=== PATIENT | male | born 1960 | race Hispanic/Latino ===

== ENCOUNTER 2017-08-07 12:38 | Inpatient (IN) | payer OTHER ==
--- NOTE | 2017-08-07 15:13 | Consultation ---
History of Present Illness - Reason for Consult Consult date: 08/07/17 chronic renal failure, end stage renal disease, hyperkalemia, metabolic acidosis - History of Present Illness The patient is a 57 YO WM with medical history significant for Type 2 DM, HTN, HLD, CVA with right sided hemiplegia and CKD stage 5 was sent from my office to the hospital to initiate hemodialysis. Patient was admitted at [facility] about 3 weeks ago with acute CVA. Subsequently he was discharged to Rehab facility. Patient c/o decreased appetite and strange taste in the tongue for the past 2 days. He also reports sleep disturbances for the past 2 weeks. While in the Rehab facility he was found to have hyperkalemia and was treated with Kayexalate. No h/o N, V, D, dizziness, new weakness, muscle cramps, leg swelling or syncope. He has DM and HTN for several years but was not taking any meds and hasn't seen a physician in several years until this month. Past History Past Medical History: anemia, diabetes, hypertension, hyperlipidemia, renal failure, stroke Medications and Allergies Allergies Allergy/AdvReac Type Severity Reaction Status Date / Time No Known Allergies Allergy Unverified 08/07/17 12:43 Home Medications Medication Instructions Recorded Confirmed Last Taken Type No Known Home Medications [No 08/07/17 08/07/17 Unknown History Reported Home Medications] Review of Systems Constitutional: anorexia, no weight loss, no weight gain, no fever, no chills, no weakness Ears, nose, mouth and throat: no epistaxis Cardiovascular: high blood pressure, no chest pain, no orthopnea, no palpitations, no edema, no lightheadedness, no shortness of breath, no leg edema Respiratory: no cough, no shortness of breath, no dyspnea on exertion Gastrointestinal: no abdominal pain, no nausea, no vomiting, no diarrhea, no melena Genitourinary Male: no dysuria, no hematuria Rectal: no bleeding Musculoskeletal: muscle weakness, gait dysfunction, no redness of joints Integumentary: no rash, no wounds, no jaundice Neurological: paralysis, weakness, loss of vision (right eye blind), no head injury, no seizures, no vertigo, no headaches, no gait dysfunction, no double vision Psychiatric: no disorientation Endocrine: no weight change Hematologic/Lymphatic: no easy bleeding Exam - Vital Signs Vital signs: Vital Signs Temp Pulse Resp BP Pulse Ox 98.3 F 66 20 167/78 94 08/07/17 14:53 08/07/17 14:53 08/07/17 14:53 08/07/17 14:53 08/07/17 14:53 - General Appearance General appearance: well-developed, well-nourished, appears stated age, other ( no distress) EENT: ATNC, PERRL, hearing intact Neck: Present: neck supple, trachea midline Respiratory: Clear to Ascultation Heart: regular, S1S2, no murmurs Gastrointestinal: Present: normoactive bowel sounds. Absent: tenderness, distended Integumentary: no rash, warm and dry Neurologic: no asterixis, alert and oriented x3, hemiplegic (right ), other ( right eye blind) Musculoskeletal: Present: other (no edema) Psychiatric: mood/affect appropriate, cooperative Results - Lab Results 08/08/17 04:57 08/08/17 04:57 Assessment and Plan 1. ESRD: CKD has progressed to ESRD and presented with uremic symptoms. Patient agreed to proceed with hemodialysis. Explained the indications, benefits and risks involved in hemodialysis. Vascular consulted for placement of hemodialysis catheter. 2. Hyperkalemia: Kayexalate. HD tomorrow. 3. Metabolic acidosis. 4. Anemia: Epogen as needed. 5. Hypertension. 6. DM type 2. 7. H/o CVA with right hemiplegia.
[2017-08-07 15:45] LABS: Basophils % (Auto) 0.6 % (0.0-1.8); Eosinophils % (Auto) 1.9 % (0.0-4.3); Hemoglobin 9.9 gm/dl (11.8-15.2); Mean Corpuscular HGB Conc 33 % (32-34); Mean Corpuscular Hemoglobin 30 pg (28-32); Mean Corpuscular Volume 90 fl (84-94); Platelet Count 237 K/mm3 (140-440); Red Blood Count 3.35 M/mm3 (3.65-5.03); White Blood Count 11.8 K/mm3 (4.5-11.0)
[2017-08-07 16:05] LABS: Albumin 3.3 g/dL (3.9-5); Albumin/Globulin Ratio 0.9 %; Bilirubin,Total 0.3 mg/dL (0.1-1.2); Calcium 8.8 mg/dL (8.4-10.2); Chloride 99.6 mmol/L (98-107); Potassium 5.5 mmol/L (3.6-5.0)
[2017-08-07] MEDS: KIONEX PO SCH ×2 (18:29→18:31)
[2017-08-07] MEDS ORDERED: MILK OF MAGNESIA PO PRN (21:45)
[2017-08-07] MEDS ORDERED: TYLENOL PO PRN (21:45)
[2017-08-07] MEDS ORDERED: PERCOCET 5/325 PO PRN (21:45)
[2017-08-07] MEDS ORDERED: DULCOLAX PR PRN (21:45)
[2017-08-07] MEDS ORDERED: ZOFRAN IV PRN (21:45)
--- NOTE | 2017-08-07 21:45 | History and Physical Report ---
History of Present Illness Date of examination: 08/07/17 Date of admission: 08/07/17 13:37 Chief complaint: CC Direct admit for High creatinine and to initiate HD History of present illness: History of Present Illness The patient is a 57 YO WM with medical history significant for Type 2 DM, HTN, HLD, CVA with right sided hemiplegia and CKD stage [address] Sharpe's office to the hospital to initiate hemodialysis. Patient was admitted at [facility] about 3 weeks ago with acute CVA. Subsequently he was discharged to Rehab facility. Patient c/o decreased appetite and strange taste in the tongue for the past 2 days. He also reports sleep disturbances for the past 2 weeks. While in the Rehab facility he was found to have hyperkalemia and was treated with Kayexalate. No h/o N, V, D, dizziness, new weakness, muscle cramps, leg swelling or syncope. He has DM and HTN for several years but was not taking any meds and hasn't seen a physician in several years until this month. Past Medical History: anemia, diabetes, hypertension, hyperlipidemia, renal failure, stroke Surgical History N?A Fam hx HTN Social Hx no smoking or Alcohol Allergies Allergy/AdvReac Type Severity Reaction Status Date / Time No Known Allergies Allergy Unverified 08/07/17 12:43 Home Medications Medication Instructions Recorded Confirmed Last Taken Type No Known Home Medications [No 08/07/17 08/07/17 Unknown History Reported Home Medications] Review of systems: Constitutional: anorexia, no weight loss, no weight gain, no fever, no chills, no weakness Ears, nose, mouth and throat: no epistaxis Cardiovascular: high blood pressure, no chest pain, no orthopnea, no palpitations, no edema, no lightheadedness, no shortness of breath, no leg edema Respiratory: no cough, no shortness of breath, no dyspnea on exertion Gastrointestinal: no abdominal pain, no nausea, no vomiting, no diarrhea, no melena Genitourinary Male: no dysuria, no hematuria Rectal: no bleeding Musculoskeletal: muscle weakness, gait dysfunction, no redness of joints Integumentary: no rash, no wounds, no jaundice Neurological: paralysis, weakness, loss of vision (right eye blind), no head injury, no seizures, no vertigo, no headaches, no gait dysfunction, no double vision Psychiatric: no disorientation Endocrine: no weight change Hematologic/Lymphatic: no easy bleeding Past History Past Medical History: anemia, diabetes, hypertension, hyperlipidemia, renal failure, stroke Medications and Allergies Allergies Allergy/AdvReac Type Severity Reaction Status Date / Time No Known Allergies Allergy Unverified 08/07/17 12:43 Home Medications Medication Instructions Recorded Confirmed Last Taken Type No Known Home Medications [No 08/07/17 08/07/17 Unknown History Reported Home Medications] Exam - Constitutional Vitals: Temp Pulse Resp BP Pulse Ox 100.3 F H 78 16 169/75 93 08/07/17 21:03 08/07/17 21:03 08/07/17 21:03 08/07/17 21:03 08/07/17 21:03 General appearance: Present: mild distress, well-nourished - EENT Eyes: Present: PERRL ENT: hearing intact, clear oral mucosa - Neck Neck: Present: supple, normal ROM - Respiratory Respiratory effort: normal Respiratory: bilateral: CTA - Cardiovascular Heart rate: 80 Rhythm: regular Heart Sounds: Present: S1 & S2. Absent: rub, click - Extremities Extremities: no ischemia, pulses intact, pulses symmetrical, No edema Peripheral Pulses: within normal limits - Abdominal General gastrointestinal: Present: soft, non-tender, non-distended, normal bowel sounds Male genitourinary: Present: normal - Rectal Rectal Exam: deferred - Integumentary Integumentary: Present: clear, warm, dry - Musculoskeletal Musculoskeletal: gait normal, strength equal bilaterally - Psychiatric Psychiatric: appropriate mood/affect, intact judgment & insight - Neurologic Neurologic: CNII-XII intact, focal deficits (Rt Hemiparesis), moves all extremities - Allied Health Allied health notes reviewed: nursing, case management Results - Labs CBC & Chem 7: 08/08/17 04:57 08/08/17 04:57 Labs: Laboratory Last Values WBC 11.8 K/mm3 (4.5-11.0) H 08/07/17 15:05 RBC 3.35 M/mm3 (3.65-5.03) L 08/07/17 15:05 Hgb 9.9 gm/dl (11.8-15.2) L 08/07/17 15:05 Hct 30.0 % (35.5-45.6) L 08/07/17 15:05 MCV 90 fl (84-94) 08/07/17 15:05 MCH 30 pg (28-32) 08/07/17 15:05 MCHC 33 % (32-34) 08/07/17 15:05 RDW 14.0 % (13.2-15.2) 08/07/17 15:05 Plt Count 237 K/mm3 (140-440) 08/07/17 15:05 Lymph % (Auto) 7.8 % (13.4-35.0) L 08/07/17 15:05 [place] % (Auto) 8.2 % (0.0-7.3) H 08/07/17 15:05 Eos % (Auto) 1.9 % (0.0-4.3) 08/07/17 15:05 Baso % (Auto) 0.6 % (0.0-1.8) 08/07/17 15:05 Lymph # 0.9 K/mm3 (1.2-5.4) L 08/07/17 15:05 [place] # 1.0 K/mm3 (0.0-0.8) H 08/07/17 15:05 Eos # 0.2 K/mm3 (0.0-0.4) 08/07/17 15:05 Baso # 0.1 K/mm3 (0.0-0.1) 08/07/17 15:05 Seg Neutrophils % 81.5 % (40.0-70.0) H 08/07/17 15:05 Seg Neutrophils # 9.6 K/mm3 (1.8-7.7) H 08/07/17 15:05 Sodium 137 mmol/L (137-145) 08/07/17 15:05 Potassium 5.5 mmol/L (3.6-5.0) H 08/07/17 15:05 Chloride 99.6 mmol/L (98-107) 08/07/17 15:05 Carbon Dioxide 21 mmol/L (22-30) L 08/07/17 15:05 Anion Gap 22 mmol/L 08/07/17 15:05 BUN 68 mg/dL (9-20) H 08/07/17 15:05 Creatinine 4.7 mg/dL (0.8-1.5) H 08/07/17 15:05 Estimated GFR 13 ml/min 08/07/17 15:05 BUN/Creatinine Ratio 14 % 08/07/17 15:05 Glucose 135 mg/dL (75-100) H 08/07/17 15:05 POC Glucose 118 (70-105) H 08/07/17 16:30 Calcium 8.8 mg/dL (8.4-10.2) 08/07/17 15:05 Phosphorus 5.00 mg/dL (2.5-4.5) H 08/07/17 15:05 Total Bilirubin 0.30 mg/dL (0.1-1.2) 08/07/17 15:05 AST 13 units/L (5-40) 08/07/17 15:05 ALT 12 units/L (7-56) 08/07/17 15:05 Alkaline Phosphatase 74 units/L (35-129) 08/07/17 15:05 Total Protein 7.0 g/dL (6.3-8.2) 08/07/17 15:05 Albumin 3.3 g/dL (3.9-5) L 08/07/17 15:05 Albumin/Globulin Ratio 0.9 % 08/07/17 15:05 Hepatitis A IgM Ab Non-reactive (NonReactive) 08/07/17 15:05 Hep Bs Antigen Non-reactive (Negative) 08/07/17 15:05 Hep B Core IgM Ab Non-reactive (NonReactive) 08/07/17 15:05 Hepatitis C Antibody Non-reactive (NonReactive) 08/07/17 15:05 Short CBC 08/07/17 08/08/17 Range/Units 15:05 04:57 WBC 11.8 H 11.4 H (4.5-11.0) K/mm3 Hgb 9.9 L 10.0 L (11.8-15.2) gm/dl Hct 30.0 L 30.3 L (35.5-45.6) % Plt Count 237 225 (140-440) K/mm3 BMP 08/07/17 08/08/17 15:05 04:57 Sodium 137 140 Potassium 5.5 H 4.3 D Chloride 99.6 103.2 Carbon Dioxide 21 L 20 L BUN 68 H 64 H Creatinine 4.7 H 4.5 H Glucose 135 H 119 H Calcium 8.8 8.5 Liver Function 08/07/17 08/08/17 Range/Units 15:05 04:57 Total Bilirubin 0.30 0.30 (0.1-1.2) mg/dL AST 13 17 (5-40) units/L ALT 12 14 (7-56) units/L Alkaline Phosphatase 74 76 (35-129) units/L Albumin 3.3 L 3.2 L (3.9-5) g/dL Assessment and Plan Advance Directives: Yes (Full code) VTE prophylaxis?: Chemical Plan of care discussed with patient/family: Yes - Patient Problems (1) Hyperkalemia Current Visit: Yes Status: Acute Plan to address problem: COrrected HD after vascath (2) ESRD needing dialysis Current Visit: Yes Status: Acute Plan to address problem: Patient to get vascath and HD (3) HTN (hypertension) Current Visit: Yes Status: Chronic Qualifiers: Hypertension type: essential hypertension Qualified Code(s): I10 - Essential (primary) hypertension Plan to address problem: Initiated on Amlodipine (4) T2DM (type 2 diabetes mellitus) Current Visit: Yes Status: Chronic Qualifiers: Diabetes mellitus complication status: without complication Plan to address problem: Check A1c Initiate oral hypoglycemics Glimepride 1 mg po qd (5) CVA (cerebrovascular accident) Current Visit: Yes Status: Chronic Qualifiers: CVA mechanism: thrombosis Precerebral and cerebral artery: middle cerebral artery Laterality of affected vessel: left Qualified Code(s): I63.312 - Cerebral infarction due to thrombosis of left middle cerebral artery Plan to address problem: PT ordered (6) Urinary retention Current Visit: Yes Status: Acute Plan to address problem: Patient with [facility] consulted (7) Anemia Current Visit: Yes Status: Chronic Qualifiers: Anemia type: unspecified type Qualified Code(s): D64.9 - Anemia, unspecified Plan to address problem: Sec to ESRD (8) DVT prophylaxis Current Visit: Yes Status: Acute Plan to address problem: on Heparin
[2017-08-07] MEDS: PEPCID PO SCH (22:40)
[2017-08-07] MEDS: AMBIEN PO PRN (22:54)
[2017-08-08 05:49] LABS: Basophils % (Auto) 0.4 % (0.0-1.8); Eosinophils % (Auto) 2.1 % (0.0-4.3); Hematocrit 30.3 % (35.5-45.6); Mean Corpuscular HGB Conc 33 % (32-34); Mean Corpuscular Hemoglobin 29 pg (28-32); Mean Corpuscular Volume 88 fl (84-94); Platelet Count 225 K/mm3 (140-440); Red Blood Count 3.45 M/mm3 (3.65-5.03); Red Cell Distribution Width 13.9 % (13.2-15.2); White Blood Count 11.4 K/mm3 (4.5-11.0)
[2017-08-08 06:08] LABS: Albumin 3.2 g/dL (3.9-5); Albumin/Globulin Ratio 0.9 %; Bilirubin,Total 0.3 mg/dL (0.1-1.2); Calcium 8.5 mg/dL (8.4-10.2); Chloride 103.2 mmol/L (98-107); Potassium 4.3 mmol/L (3.6-5.0); Total Protein 6.9 g/dL (6.3-8.2)
[2017-08-08] MEDS ORDERED: CALCIUM GLUCONATE 2,000 MG in NACL 0.9% 100 ML IV ONE (06:43)
[2017-08-08] MEDS ORDERED: KIONEX PO ONE (06:44)
--- NOTE | 2017-08-08 08:12 | Progress Note ---
Assessment and Plan 1. ESRD: CKD has progressed to ESRD and presented with uremic symptoms. Patient agreed to proceed with hemodialysis. Scheduled for hemodialysis catheter placement today. 2. Hyperkalemia: Improved with Kayexalate. HD today. 3. Metabolic acidosis. 4. Anemia: Epogen as needed. 5. Hypertension. 6. DM type 2. 7. H/o CVA with right hemiplegia. Subjective Date of service: 08/08/17 Interval history: Patient is doing ok. Objective - Vital Signs Vital signs: Vital Signs - 12hr 08/07/17 21:03 Temperature 100.3 F H Pulse Rate 78 Respiratory 16 Rate Blood Pressure 169/75 O2 Sat by Pulse 93 Oximetry - General Appearance General appearance: well-developed, well-nourished, appears stated age, other ( no distress) EENT: ATNC, PERRL, mucous membranes moist, hearing intact Neck: supple Respiratory: Present: Clear to Ascultation Cardiology: regular, S1S2, no murmurs Gastrointestinal: normoactive bowel sounds, no tenderness, no distended Integumentary: no rash, warm and dry Neurologic: no asterixis, alert and oriented x3, hemiplegic (right), other ( blindness right eye) Musculoskeletal: other (no edema) Psychiatric: mood/affect appropriate, cooperative - Lab 08/08/17 04:57 08/08/17 04:57 Most recent lab results Calcium 8.5 mg/dL (8.4-10.2) 08/08/17 04:57 Phosphorus 5.00 mg/dL (2.5-4.5) H 08/07/17 15:05
[2017-08-08] MEDS ORDERED: NACL 0.9% 100 ML IV PRN (08:41)
[2017-08-08] MEDS ORDERED: VERSED ONE (09:31)
[2017-08-08] MEDS ORDERED: HEPARIN 10,000 UNITS/10 ML ONE (09:31)
[2017-08-08] MEDS ORDERED: HEPARIN/NS 5000 UNIT/500ML(CATH LAB) 500 ML IR ONE (09:31)
[2017-08-08] MEDS ORDERED: XYLOCAINE 2% INFILTRATI ONE (09:32)
[2017-08-08] MEDS ORDERED: SUBLIMAZE ONE (09:32)
[2017-08-08] MEDS ORDERED: NACL 0.9% 250ML 250 ML ONE ×2 (09:32)
--- NOTE | 2017-08-08 09:52 | Operative Report ---
Operative Report Operative Report: EXAM: ULTRASOUND AND FLUOROSCOPIC GUIDED PLACEMENT OF TUNNELED HEMODIALYSIS CATHETER CLINICAL INDICATION: CHRONIC RENAL DISEASE REQUIRING HEMODIALYSIS ACCESS DATE: 08/08/2017 PROCEDURE: Following an excellent amputation of the risks, benefits and alternatives; and informed consent was obtained. The patient was brought to the antigravity suite and placed in supine position on the examination table. Initial ultrasound evaluation of the neck demonstrated a patent right internal jugular vein. The right neck and chest wall were prepped and draped in the usual sterile fashion. 1% lidocaine was used for anesthesia. Under ultrasound guidance, the right internal jugular vein was cannulated with a 7 cm 18-gauge needle. A 0.035 guidewire was then advanced through the needle into the IVC to document intravenous positioning. The needle was removed. An appropriate catheter exit site was chosen along the lateral right chest wall. 1% lidocaine was used for anesthesia at the catheter exit site and along the tunnel tract. A Bard glide past tunneled hemodialysis catheter was then tunneled antegrade from the catheter exit site to the venotomy site. Following serial dilation over the guidewire under fluoroscopy, a 16 Israeli peel -away sheath was placed over the guidewire under fluoroscopy and advanced to the proximal right atrium. The guidewire and trocar were removed. The hemodialysis catheter was advanced through the peel-away sheath and positioned with the tip in the proximal right atrium. The peel-away sheath was then removed. Both ports flushed and aspirated easily and more than locked with appropriate volumes of heparin. The venotomy site was closed using 3-0 Vicryl suture and Dermabond. 3-0 Vicryl suture was also applied to the catheter exit site. A sterile dressing was then applied. The patient tolerated the procedure well. There were no immediate post procedure palpitations. Conscious sedation was performed under the guidance of radiologic nursing. Continuous cardiopulmonary monitoring was utilized. IMPRESSION: 1) Ultrasound and fluoroscopic guided placement of tunneled hemodialysis catheter.
[2017-08-08] MEDS: HEPARIN IV PRN (12:20)
[2017-08-08] MEDS ORDERED: NACL 0.9 (PRIMING MACHINE ONLY DIALYSIS) MC ONE (12:25)
[2017-08-08] MEDS: NOVOLOG SUB-Q SCH ×3 (16:06→22:27)
[2017-08-08] MEDS: NORVASC PO SCH (16:22)
[2017-08-08] MEDS: PEPCID PO SCH ×2 (16:23→22:17)
--- NOTE | 2017-08-08 16:42 | Progress Note ---
Assessment and Plan Assessment and plan: The patient is a 57 YO WM with medical history significant for Type 2 DM, HTN, HLD, CVA with right sided hemiplegia and CKD stage [address] Sharpe's office to the hospital to initiate hemodialysis. Patient was admitted at [facility] about 3 weeks ago with acute CVA. Subsequently he was discharged to Rehab facility. Patient c/o decreased appetite and strange taste in the tongue for the past 2 days. He also reports sleep disturbances for the past 2 weeks. While in the Rehab facility he was found to have hyperkalemia and was treated with Kayexalate. No h/o N, V, D, dizziness, new weakness, muscle cramps, leg swelling or syncope. He has DM and HTN for several years but was not taking any meds and hasn't seen a physician in several years until this month. (1) Hyperkalemia Current Visit: Yes Status: Acute Plan to address problem: COrrected HD after vascath (2) ESRD needing dialysis Current Visit: Yes Status: Acute Plan to address problem: Vas-Cath placed patient's R page the case management work until establishing outpatient dialysis center. (3) HTN (hypertension) Current Visit: Yes Status: Chronic Qualifiers: Hypertension type: essential hypertension Qualified Code(s): I10 - Essential (primary) hypertension Plan to address problem: Initiated on Amlodipine (4) T2DM (type 2 diabetes mellitus) Current Visit: Yes Status: Chronic Qualifiers: Diabetes mellitus complication status: without complication Plan to address problem: Check A1c Initiate oral hypoglycemics Glimepride 1 mg po qd (5) CVA (cerebrovascular accident) Current Visit: Yes Status: Chronic Qualifiers: CVA mechanism: thrombosis Precerebral and cerebral artery: middle cerebral artery Laterality of affected vessel: left Qualified Code(s): I63.312 - Cerebral infarction due to thrombosis of left middle cerebral artery Plan to address problem: PT ordered (6) Urinary retention Current Visit: Yes Status: Acute Plan to address problem: Patient with [facility] consulted (7) Anemia Current Visit: Yes Status: Chronic Qualifiers: Anemia type: unspecified type Qualified Code(s): D64.9 - Anemia, unspecified Plan to address problem: Sec to ESRD (8) DVT prophylaxis Current Visit: Yes Status: Acute Plan to address problem: on Heparin History Interval history: Patient seen and examined, in no acute distress. appears to be at baseline per family. Bother inlaw at bedside Hospitalist Physical - Physical exam Narrative exam: VITAL SIGNS: Reviewed. GENERAL: The patient appeared well nourished and normally developed. Vital signs as documented. HEAD: No signs of head trauma. EYES: Pupils are equal. Extraocular motions intact. EARS: Hearing grossly intact. MOUTH: Oropharynx is normal. NECK: No adenopathy, no JVD. CHEST: Chest with clear breath sounds bilaterally. No wheezes, rales, or rhonchi. CARDIAC: Regular rate and rhythm. S1 and S2, without murmurs, gallops, or rubs. VASCULAR: No Edema. Peripheral pulses normal and equal in all extremities. ABDOMEN: Soft, without detectable tenderness. No sign of distention. No rebound or guarding, and no masses palpated. Bowel Sounds normal. MUSCULOSKELETAL: Good range of motion of all major joints. Extremities without clubbing, cyanosis or edema. NEUROLOGIC EXAM: Alert and oriented x 3. 3 over 5 motor strength right upper extremity, unable to abduct the left upper extremity.. Speech normal. Follows commands. PSYCHIATRIC: Mood normal. SKIN: No rash or lesions. - Constitutional Vitals: Temp Pulse Resp BP Pulse Ox 98.7 F 73 18 179/83 94 08/08/17 12:35 08/08/17 12:35 08/08/17 12:35 08/08/17 12:35 08/08/17 08:01 General appearance: Present: mild distress, well-nourished Results - Labs CBC & Chem 7: 08/08/17 04:57 08/08/17 04:57 Labs: Laboratory Last Values WBC 11.4 K/mm3 (4.5-11.0) H 08/08/17 04:57 RBC 3.45 M/mm3 (3.65-5.03) L 08/08/17 04:57 Hgb 10.0 gm/dl (11.8-15.2) L 08/08/17 04:57 Hct 30.3 % (35.5-45.6) L 08/08/17 04:57 MCV 88 fl (84-94) 08/08/17 04:57 MCH 29 pg (28-32) 08/08/17 04:57 MCHC 33 % (32-34) 08/08/17 04:57 RDW 13.9 % (13.2-15.2) 08/08/17 04:57 Plt Count 225 K/mm3 (140-440) 08/08/17 04:57 Lymph % (Auto) 10.1 % (13.4-35.0) L 08/08/17 04:57 [place] % (Auto) 8.4 % (0.0-7.3) H 08/08/17 04:57 Eos % (Auto) 2.1 % (0.0-4.3) 08/08/17 04:57 Baso % (Auto) 0.4 % (0.0-1.8) 08/08/17 04:57 Lymph # 1.2 K/mm3 (1.2-5.4) 08/08/17 04:57 [place] # 1.0 K/mm3 (0.0-0.8) H 08/08/17 04:57 Eos # 0.2 K/mm3 (0.0-0.4) 08/08/17 04:57 Baso # 0.0 K/mm3 (0.0-0.1) 08/08/17 04:57 Seg Neutrophils % 79.0 % (40.0-70.0) H 08/08/17 04:57 Seg Neutrophils # 9.0 K/mm3 (1.8-7.7) H 08/08/17 04:57 Sodium 140 mmol/L (137-145) 08/08/17 04:57 Potassium 4.3 mmol/L (3.6-5.0) D 08/08/17 04:57 Chloride 103.2 mmol/L (98-107) 08/08/17 04:57 Carbon Dioxide 20 mmol/L (22-30) L 08/08/17 04:57 Anion Gap 21 mmol/L 08/08/17 04:57 BUN 64 mg/dL (9-20) H 08/08/17 04:57 Creatinine 4.5 mg/dL (0.8-1.5) H 08/08/17 04:57 Estimated GFR 14 ml/min 08/08/17 04:57 BUN/Creatinine Ratio 14 % 08/08/17 04:57 Glucose 119 mg/dL (75-100) H 08/08/17 04:57 POC Glucose 118 (70-105) H 08/07/17 16:30 Hemoglobin A1c 6.1 % (4-6) H 08/07/17 Unknown Calcium 8.5 mg/dL (8.4-10.2) 08/08/17 04:57 Phosphorus 5.00 mg/dL (2.5-4.5) H 08/07/17 15:05 Total Bilirubin 0.30 mg/dL (0.1-1.2) 08/08/17 04:57 AST 17 units/L (5-40) 08/08/17 04:57 ALT 14 units/L (7-56) 08/08/17 04:57 Alkaline Phosphatase 76 units/L (35-129) 08/08/17 04:57 Total Protein 6.9 g/dL (6.3-8.2) 08/08/17 04:57 Albumin 3.2 g/dL (3.9-5) L 08/08/17 04:57 Albumin/Globulin Ratio 0.9 % 08/08/17 04:57 Hepatitis A IgM Ab Non-reactive (NonReactive) 08/07/17 15:05 Hep Bs Antigen Non-reactive (Negative) 08/07/17 15:05 Hep B Core IgM Ab Non-reactive (NonReactive) 08/07/17 15:05 Hepatitis C Antibody Non-reactive (NonReactive) 08/07/17 15:05
[2017-08-08] MEDS: AMARYL PO SCH (17:17)
[2017-08-08] MEDS: HEPARIN SUB-Q SCH ×2 (17:18→22:17)
[2017-08-08] MEDS: AMBIEN PO PRN (23:22)
[2017-08-09 05:56] LABS: Calcium 8.8 mg/dL (8.4-10.2); Chloride 97.1 mmol/L (98-107); Potassium 4.3 mmol/L (3.6-5.0)
[2017-08-09] MEDS ORDERED: NACL 0.9% 100 ML IV PRN (06:14)
--- NOTE | 2017-08-09 06:14 | Progress Note ---
Assessment and Plan 1. ESRD: CKD has progressed to ESRD and was initiated hemodialysis yesterday. Patient tolerated HD well. Hemodialysis today. 2. Hyperkalemia: Improved. HD today. 3. Metabolic acidosis: Improved. 4. Anemia: Epogen as needed. 5. Hypertension. 6. DM type 2. 7. H/o CVA with right hemiplegia. Subjective Date of service: 08/09/17 Interval history: Patient is doing ok. Objective - Vital Signs Vital signs: Vital Signs - 12hr 08/08/17 08/08/17 21:19 22:00 Temperature 99.6 F Pulse Rate 109 H Respiratory 16 2 L Rate Blood Pressure 157/83 O2 Sat by Pulse 95 Oximetry - General Appearance General appearance: well-developed, well-nourished, appears stated age, other ( no distress, right IJ tunnel catheter) EENT: ATNC, mucous membranes moist, hearing intact Neck: no JVD Respiratory: Present: Clear to Ascultation Cardiology: regular, S1S2, no murmurs Gastrointestinal: normoactive bowel sounds Integumentary: no rash, warm and dry Neurologic: no asterixis, alert and oriented x3, hemiplegic (right side), other (right eye blindness) Musculoskeletal: other (no edema) Psychiatric: mood/affect appropriate, cooperative - Lab 08/08/17 04:57 08/09/17 04:54 Most recent lab results Calcium 8.8 mg/dL (8.4-10.2) 08/09/17 04:54 Phosphorus 5.00 mg/dL (2.5-4.5) H 08/07/17 15:05
[2017-08-09] MEDS: NOVOLOG SUB-Q SCH ×3 (08:33→17:53)
[2017-08-09] MEDS: PEPCID PO SCH ×2 (08:33→12:04)
[2017-08-09] MEDS: AMARYL PO SCH (08:33)
--- NOTE | 2017-08-09 09:15 | XRay Report ---
AP CHEST: HISTORY: Evaluate for tuberculosis, renal failure No recent comparison. A dual-lumen right IJ venous catheter terminates at the cavoatrial junction. Heart size and pulmonary vascularity are within normal limits. Normal mediastinal contour. The lungs are clear. No pleural effusion or pneumothorax. Unremarkable bony structures. IMPRESSION: Unremarkable AP chest. No findings to suggest primary or reactive tuberculosis on AP chest.
[2017-08-09] MEDS: HEPARIN SUB-Q SCH ×2 (10:00→23:59)
--- NOTE | 2017-08-09 17:07 | Progress Note ---
Assessment and Plan Assessment and plan: The patient is a 57 YO WM with medical history significant for Type 2 DM, HTN, HLD, CVA with right sided hemiplegia and CKD stage [address] Sharpe's office to the hospital to initiate hemodialysis. Patient was admitted at [facility] about 3 weeks ago with acute CVA. Subsequently he was discharged to Rehab facility. Patient c/o decreased appetite and strange taste in the tongue for the past 2 days. He also reports sleep disturbances for the past 2 weeks. While in the Rehab facility he was found to have hyperkalemia and was treated with Kayexalate. No h/o N, V, D, dizziness, new weakness, muscle cramps, leg swelling or syncope. He has DM and HTN for several years but was not taking any meds and hasn't seen a physician in several years until this month. (1) Hyperkalemia Current Visit: Yes Status: Acute Plan to address problem: Corrected HD after vascath (2) ESRD needing dialysis Current Visit: Yes Status: Acute Plan to address problem: Vas-Cath placed patient's R page the case management work until establishing outpatient dialysis center. (3) HTN (hypertension) Current Visit: Yes Status: Chronic Qualifiers: Hypertension type: essential hypertension Qualified Code(s): I10 - Essential (primary) hypertension Plan to address problem: Initiated on Amlodipine (4) T2DM (type 2 diabetes mellitus) Current Visit: Yes Status: Chronic Qualifiers: Diabetes mellitus complication status: without complication Plan to address problem: Check A1c Initiate oral hypoglycemics Glimepride 1 mg po qd (5) CVA (cerebrovascular accident) Current Visit: Yes Status: Chronic Qualifiers: CVA mechanism: thrombosis Precerebral and cerebral artery: middle cerebral artery Laterality of affected vessel: left Qualified Code(s): I63.312 - Cerebral infarction due to thrombosis of left middle cerebral artery Plan to address problem: PT ordered (6) Urinary retention Current Visit: Yes Status: Acute Plan to address problem: Patient with Calero Placed by nurse per patient at previous facility. Will discontinue, start on Flomax. (7) Anemia Current Visit: Yes Status: Chronic Qualifiers: Anemia type: unspecified type Qualified Code(s): D64.9 - Anemia, unspecified Plan to address problem: Sec to ESRD (8) DVT prophylaxis Current Visit: Yes Status: Acute Plan to address problem: on Heparin DISPO: Friday once Dialysis is established. History Interval history: Patient seen and examined, in no acute distress. Denies chest pain, nausea, vomiting, diarrhea. Hospitalist Physical - Physical exam Narrative exam: VITAL SIGNS: Reviewed. GENERAL: The patient appeared well nourished and normally developed. Vital signs as documented. HEAD: No signs of head trauma. EYES: Pupils are equal. Extraocular motions intact. EARS: Hearing grossly intact. MOUTH: Oropharynx is normal. NECK: No adenopathy, no JVD. CHEST: Chest with clear breath sounds bilaterally. No wheezes, rales, or rhonchi. CARDIAC: Regular rate and rhythm. S1 and S2, without murmurs, gallops, or rubs. VASCULAR: No Edema. Peripheral pulses normal and equal in all extremities. ABDOMEN: Soft, without detectable tenderness. No sign of distention. No rebound or guarding, and no masses palpated. Bowel Sounds normal. MUSCULOSKELETAL: Good range of motion of all major joints. Extremities without clubbing, cyanosis or edema. NEUROLOGIC EXAM: Alert and oriented x 3. 3 over 5 motor strength right upper extremity, unable to abduct the left upper extremity.. Speech normal. Follows commands. PSYCHIATRIC: Mood normal. SKIN: No rash or lesions. - Constitutional Vitals: Temp Pulse Resp BP Pulse Ox 98.4 F 89 18 166/86 97 08/09/17 08:57 08/09/17 08:58 08/09/17 08:57 08/09/17 08:57 08/09/17 08:58 General appearance: Present: mild distress, well-nourished Results - Labs CBC & Chem 7: 08/08/17 04:57 08/09/17 04:54 Labs: Laboratory Last Values WBC 11.4 K/mm3 (4.5-11.0) H 08/08/17 04:57 RBC 3.45 M/mm3 (3.65-5.03) L 08/08/17 04:57 Hgb 10.0 gm/dl (11.8-15.2) L 08/08/17 04:57 Hct 30.3 % (35.5-45.6) L 08/08/17 04:57 MCV 88 fl (84-94) 08/08/17 04:57 MCH 29 pg (28-32) 08/08/17 04:57 MCHC 33 % (32-34) 08/08/17 04:57 RDW 13.9 % (13.2-15.2) 08/08/17 04:57 Plt Count 225 K/mm3 (140-440) 08/08/17 04:57 Lymph % (Auto) 10.1 % (13.4-35.0) L 08/08/17 04:57 [place] % (Auto) 8.4 % (0.0-7.3) H 08/08/17 04:57 Eos % (Auto) 2.1 % (0.0-4.3) 08/08/17 04:57 Baso % (Auto) 0.4 % (0.0-1.8) 08/08/17 04:57 Lymph # 1.2 K/mm3 (1.2-5.4) 08/08/17 04:57 [place] # 1.0 K/mm3 (0.0-0.8) H 08/08/17 04:57 Eos # 0.2 K/mm3 (0.0-0.4) 08/08/17 04:57 Baso # 0.0 K/mm3 (0.0-0.1) 08/08/17 04:57 Seg Neutrophils % 79.0 % (40.0-70.0) H 08/08/17 04:57 Seg Neutrophils # 9.0 K/mm3 (1.8-7.7) H 08/08/17 04:57 Sodium 140 mmol/L (137-145) 08/09/17 04:54 Potassium 4.3 mmol/L (3.6-5.0) 08/09/17 04:54 Chloride 97.1 mmol/L (98-107) L 08/09/17 04:54 Carbon Dioxide 25 mmol/L (22-30) 08/09/17 04:54 Anion Gap 22 mmol/L 08/09/17 04:54 BUN 44 mg/dL (9-20) H 08/09/17 04:54 Creatinine 3.7 mg/dL (0.8-1.5) H 08/09/17 04:54 Estimated GFR 17 ml/min 08/09/17 04:54 BUN/Creatinine Ratio 12 % 08/09/17 04:54 Glucose 119 mg/dL (75-100) H 08/09/17 04:54 POC Glucose 184 (70-105) H 08/09/17 11:57 Hemoglobin A1c 6.1 % (4-6) H 08/07/17 Unknown Calcium 8.8 mg/dL (8.4-10.2) 08/09/17 04:54 Phosphorus 5.00 mg/dL (2.5-4.5) H 08/07/17 15:05 Total Bilirubin 0.30 mg/dL (0.1-1.2) 08/08/17 04:57 AST 17 units/L (5-40) 08/08/17 04:57 ALT 14 units/L (7-56) 08/08/17 04:57 Alkaline Phosphatase 76 units/L (35-129) 08/08/17 04:57 Total Protein 6.9 g/dL (6.3-8.2) 08/08/17 04:57 Albumin 3.2 g/dL (3.9-5) L 08/08/17 04:57 Albumin/Globulin Ratio 0.9 % 08/08/17 04:57 Hepatitis A IgM Ab Non-reactive (NonReactive) 08/07/17 15:05 Hep Bs Antigen Non-reactive (Negative) 08/07/17 15:05 Hep B Core IgM Ab Non-reactive (NonReactive) 08/07/17 15:05 Hepatitis C Antibody Non-reactive (NonReactive) 08/07/17 15:05
[2017-08-09] MEDS: FLOMAX PO SCH (17:52)
[2017-08-09] MEDS: HEPARIN IV PRN (22:00)
[2017-08-09] MEDS ORDERED: NACL 0.9 (PRIMING MACHINE ONLY DIALYSIS) MC ONE (22:27)
[2017-08-10] MEDS: NOVOLOG SUB-Q SCH ×4 (00:02→22:33)
[2017-08-10] MEDS: NORVASC PO SCH ×3 (02:06→18:54)
[2017-08-10] MEDS: FLOMAX PO SCH ×2 (08:33→18:52)
[2017-08-10] MEDS: PEPCID PO SCH ×4 (08:33→22:34)
[2017-08-10] MEDS: AMARYL PO SCH (08:33)
--- NOTE | 2017-08-10 09:29 | Progress Note ---
Assessment and Plan 1. ESRD: CKD had progressed to ESRD and patient was started on hemodialysis during this admission. Tolerated 2 sessions of hemodialysis well. HD tomorrow. Await outpatient HD chair. 2. Hyperkalemia: Improved. 3. Metabolic acidosis: Improved. 4. Anemia: Epogen as needed. 5. Hypertension: Add Lisinopril. 6. DM type 2. 7. H/o CVA with right hemiplegia. Subjective Date of service: 08/10/17 Interval history: Patient is doing ok. Objective - Vital Signs Vital signs: Vital Signs - 12hr 08/09/17 08/09/17 08/09/17 21:30 21:45 22:00 Temperature Pulse Rate 99 H 96 H 92 H Respiratory Rate Blood Pressure 130/79 127/71 149/77 O2 Sat by Pulse Oximetry 08/09/17 08/09/17 08/09/17 22:15 22:30 22:45 Temperature Pulse Rate 91 H 94 H 92 H Respiratory Rate Blood Pressure 143/81 138/79 130/78 O2 Sat by Pulse Oximetry 08/09/17 08/10/17 08/10/17 22:50 01:43 02:06 Temperature 98.0 F 99.4 F Pulse Rate 96 H 95 H Respiratory 18 20 Rate Blood Pressure 152/82 170/86 170/86 O2 Sat by Pulse 94 Oximetry 08/10/17 08/10/17 04:46 07:28 Temperature 99.3 F 99.2 F Pulse Rate 103 H 95 H Respiratory 20 20 Rate Blood Pressure 156/84 156/78 O2 Sat by Pulse 94 94 Oximetry - General Appearance General appearance: well-developed, well-nourished, appears stated age, other ( no distress, right IJ tunnel catheter) EENT: ATNC, PERRL, mucous membranes moist, hearing intact Neck: supple Respiratory: Present: Clear to Ascultation Cardiology: regular, S1S2, no murmurs Gastrointestinal: normoactive bowel sounds, no tenderness, no distended Integumentary: no rash, warm and dry Neurologic: no asterixis, alert and oriented x3, hemiplegic (right side), other (right eye blindness) Musculoskeletal: other (no edema) Psychiatric: mood/affect appropriate, cooperative - Lab 08/08/17 04:57 08/09/17 04:54 Most recent lab results Calcium 8.8 mg/dL (8.4-10.2) 08/09/17 04:54 Phosphorus 5.00 mg/dL (2.5-4.5) H 08/07/17 15:05
[2017-08-10] MEDS: HEPARIN SUB-Q SCH ×2 (09:53→22:32)
[2017-08-10] MEDS: LOPRESSOR PO SCH ×2 (09:54→22:31)
[2017-08-10] MEDS ORDERED: NACL 0.9% 100 ML IV PRN (10:46)
[2017-08-10] MEDS: ZESTRIL PO SCH (11:00)
--- NOTE | 2017-08-10 21:40 | Progress Note ---
Assessment and Plan - Patient Problems (1) Hyperkalemia Current Visit: Yes Status: Acute Plan to address problem: COrrected HD after vascath (2) ESRD needing dialysis Current Visit: Yes Status: Acute Plan to address problem: Patient on HD Getting Mapping for possible AV graft (3) HTN (hypertension) Current Visit: Yes Status: Chronic Qualifiers: Hypertension type: essential hypertension Qualified Code(s): I10 - Essential (primary) hypertension Plan to address problem: Initiated on Amlodipine (4) T2DM (type 2 diabetes mellitus) Current Visit: Yes Status: Chronic Qualifiers: Diabetes mellitus complication status: without complication Plan to address problem: Check A1c Initiate oral hypoglycemics Glimepride 1 mg po qd (5) CVA (cerebrovascular accident) Current Visit: Yes Status: Chronic Qualifiers: CVA mechanism: thrombosis Precerebral and cerebral artery: middle cerebral artery Laterality of affected vessel: left Qualified Code(s): I63.312 - Cerebral infarction due to thrombosis of left middle cerebral artery Plan to address problem: PT ordered (6) Urinary retention Current Visit: Yes Status: Acute Plan to address problem: Patient with Calero Urology consulted (7) Anemia Current Visit: Yes Status: Chronic Qualifiers: Anemia type: unspecified type Qualified Code(s): D64.9 - Anemia, unspecified Plan to address problem: Sec to ESRD (8) DVT prophylaxis Current Visit: Yes Status: Acute Plan to address problem: on Heparin Subjective Date of service: 08/10/17 Principal diagnosis: ESRD Interval history: On Dialysis.To get mapping tomorrow Objective - Constitutional Vitals: Vital Signs - 12hr 08/10/17 08/10/17 08/10/17 15:59 20:56 20:58 Temperature 99.8 F H 99.2 F Pulse Rate 109 H 102 H Respiratory 22 16 16 Rate Blood Pressure 143/76 166/81 O2 Sat by Pulse 95 97 Oximetry - Labs CBC & Chem 7: 08/08/17 04:57 08/09/17 04:54 Labs: Abnormal lab results 08/09/17 Range/Units 23:19 POC Glucose 144 H (70-105)
[2017-08-10] MEDS: AMBIEN PO PRN (23:32)
--- NOTE | 2017-08-11 07:31 | Vascular Lab Report ---
Upper extremity vein mapping Reason for exam: Preoperative evaluation for hemodialysis access Comments: On the right, the cephalic vein is usable from wrist to shoulder. The basilic vein is usable from wrist to shoulder. The brachial and radial arteries are patent. The radial artery is of normal caliber. On the left, the cephalic vein is usable from wrist to shoulder. The basilic vein is usable from wrist to shoulder. The brachial and radial arteries are patent. The radial artery is of normal caliber. Impression: Both cephalic veins are suitable for use as AV access sites. Both basilic veins are suitable for use as AV access sites. No arterial issues were identified.
--- NOTE | 2017-08-11 07:41 | Vascular Lab Report ---
MISCELLANEOUS VESSEL IDENTIFICATION: COMMENTS ON THE SCAN: The right internal jugular vein was identified and under real-time ultrasound guidance was cannulated. IMPRESSION: Successful ultrasound guided vein cannulation.
[2017-08-11] MEDS: NOVOLOG SUB-Q SCH ×3 (07:42→23:00)
--- NOTE | 2017-08-11 08:06 | Progress Note ---
Assessment and Plan 1. ESRD: CKD had progressed to ESRD and patient was started on hemodialysis during this admission. Tolerated 2 sessions of hemodialysis well. HD today. Await outpatient HD chair. 2. Hyperkalemia: Improved. 3. Metabolic acidosis: Improved. 4. Anemia: Epogen as needed. 5. Hypertension: BP well controlled. 6. DM type 2. 7. H/o CVA with right hemiplegia. Subjective Date of service: 08/11/17 Interval history: Patient is doing ok. Objective - Vital Signs Vital signs: Vital Signs - 12hr 08/10/17 08/10/17 08/10/17 20:56 20:58 22:31 Temperature 99.2 F Pulse Rate 102 H 102 H Respiratory 16 16 Rate Blood Pressure 166/81 166/81 O2 Sat by Pulse 97 Oximetry 08/11/17 04:59 Temperature 97.9 F Pulse Rate 90 Respiratory 16 Rate Blood Pressure 166/78 O2 Sat by Pulse 96 Oximetry - General Appearance General appearance: well-developed, well-nourished, appears stated age, other ( no distress, right IJ tunnel catheter) EENT: ATNC, PERRL, mucous membranes moist, hearing intact Neck: supple Respiratory: Present: Clear to Ascultation Cardiology: regular, S1S2, no murmurs Gastrointestinal: normoactive bowel sounds, no tenderness, no distended Integumentary: no rash, warm and dry Neurologic: no asterixis, alert and oriented x3, hemiplegic (right side), other (right eye blindness) Musculoskeletal: other (no edema) Psychiatric: mood/affect appropriate, cooperative - Lab 08/08/17 04:57 08/09/17 04:54 Most recent lab results Calcium 8.8 mg/dL (8.4-10.2) 08/09/17 04:54 Phosphorus 5.00 mg/dL (2.5-4.5) H 08/07/17 15:05
[2017-08-11] MEDS: AMARYL PO SCH (08:14)
[2017-08-11] MEDS ORDERED: NACL 0.9 (PRIMING MACHINE ONLY DIALYSIS) MC ONE (10:48)
--- NOTE | 2017-08-11 16:05 | Event Note ---
Date: 08/11/17 Pt s/p PC insertion. Asked to eval for AVF. Pt off the floor, and not seen today. Vein mapping reviewed. He appears to be a candidate for AVF in both arms. Given that he has functional deficits in the RUE, it would be the preferred site for AVF creation. Pt will need to be medically optimized prior to any intervention. In general, we would delay any elective surgical intervention a minimum 6 weeks following acute cva. Will need to discuss with the other services.
[2017-08-11] MEDS: ZESTRIL PO SCH (16:32)
[2017-08-11] MEDS: NORVASC PO SCH (16:32)
--- NOTE | 2017-08-11 19:50 | Progress Note ---
Assessment and Plan Assessment and plan: 57 yo male with HTN, DM, HPL, CKD and recent stroke with right-sided hemiparesis , sent from rehabilitation facility due to hyperkalemia 1. CKD that progressed ESRD that required HD indication Status post permacath placement; also vein mapping obtained for permanent dialysis access creation; vascular surgery plans AVG in 6 weeks HD per nephrology 2. Hyperkalemia Medically treated initially, then started on HD Now corrected 3. Anemia of CKD Epogen with HD per nephrology 4. Hypertension Started on amlodipine and BP controlled 5. Diabetes Hemoglobin A1c 6.1 Started on oral hypoglycemics 6. CVA with residual right-sided hemiparesis Start aspirin and statin PT 7. DVT prophylaxis History Interval history: doing well, no complaints Hospitalist Physical - Constitutional Vitals: Temp Pulse Resp BP Pulse Ox 99.8 F H 103 H 20 142/78 95 08/11/17 16:09 08/11/17 16:09 08/11/17 16:33 08/11/17 16:09 08/11/17 16:09 General appearance: Present: no acute distress, well-nourished - EENT Eyes: Present: PERRL, EOM intact - Neck Neck: Present: supple, normal ROM. Absent: masses or JVD - Respiratory Respiratory effort: normal Respiratory: bilateral: CTA, negative: rhonchi, wheezing - Cardiovascular Rhythm: regular Heart Sounds: Present: S1 & S2. Absent: systolic murmur - Extremities Extremities: no ischemia - Abdominal General gastrointestinal: soft, non-tender, non-distended, normal bowel sounds - Psychiatric Psychiatric: cooperative - Neurologic Neurologic: other (right-sided hemiparesis) Results - Labs CBC & Chem 7: 08/12/17 04:41 08/09/17 04:54 Labs: Laboratory Last Values WBC 11.4 K/mm3 (4.5-11.0) H 08/08/17 04:57 RBC 3.45 M/mm3 (3.65-5.03) L 08/08/17 04:57 Hgb 10.0 gm/dl (11.8-15.2) L 08/08/17 04:57 Hct 30.3 % (35.5-45.6) L 08/08/17 04:57 MCV 88 fl (84-94) 08/08/17 04:57 MCH 29 pg (28-32) 08/08/17 04:57 MCHC 33 % (32-34) 08/08/17 04:57 RDW 13.9 % (13.2-15.2) 08/08/17 04:57 Plt Count 225 K/mm3 (140-440) 08/08/17 04:57 Lymph % (Auto) 10.1 % (13.4-35.0) L 08/08/17 04:57 [place] % (Auto) 8.4 % (0.0-7.3) H 08/08/17 04:57 Eos % (Auto) 2.1 % (0.0-4.3) 08/08/17 04:57 Baso % (Auto) 0.4 % (0.0-1.8) 08/08/17 04:57 Lymph # 1.2 K/mm3 (1.2-5.4) 08/08/17 04:57 [place] # 1.0 K/mm3 (0.0-0.8) H 08/08/17 04:57 Eos # 0.2 K/mm3 (0.0-0.4) 08/08/17 04:57 Baso # 0.0 K/mm3 (0.0-0.1) 08/08/17 04:57 Seg Neutrophils % 79.0 % (40.0-70.0) H 08/08/17 04:57 Seg Neutrophils # 9.0 K/mm3 (1.8-7.7) H 08/08/17 04:57 Sodium 140 mmol/L (137-145) 08/09/17 04:54 Potassium 4.3 mmol/L (3.6-5.0) 08/09/17 04:54 Chloride 97.1 mmol/L (98-107) L 08/09/17 04:54 Carbon Dioxide 25 mmol/L (22-30) 08/09/17 04:54 Anion Gap 22 mmol/L 08/09/17 04:54 BUN 44 mg/dL (9-20) H 08/09/17 04:54 Creatinine 3.7 mg/dL (0.8-1.5) H 08/09/17 04:54 Estimated GFR 17 ml/min 08/09/17 04:54 BUN/Creatinine Ratio 12 % 08/09/17 04:54 Glucose 119 mg/dL (75-100) H 08/09/17 04:54 POC Glucose 81 (70-105) 08/11/17 16:28 Hemoglobin A1c 6.1 % (4-6) H 08/07/17 Unknown Calcium 8.8 mg/dL (8.4-10.2) 08/09/17 04:54 Phosphorus 5.00 mg/dL (2.5-4.5) H 08/07/17 15:05 Total Bilirubin 0.30 mg/dL (0.1-1.2) 08/08/17 04:57 AST 17 units/L (5-40) 08/08/17 04:57 ALT 14 units/L (7-56) 08/08/17 04:57 Alkaline Phosphatase 76 units/L (35-129) 08/08/17 04:57 Total Protein 6.9 g/dL (6.3-8.2) 08/08/17 04:57 Albumin 3.2 g/dL (3.9-5) L 08/08/17 04:57 Albumin/Globulin Ratio 0.9 % 08/08/17 04:57 Hepatitis A IgM Ab Non-reactive (NonReactive) 08/07/17 15:05 Hep Bs Antigen Non-reactive (Negative) 08/07/17 15:05 Hep B Core IgM Ab Non-reactive (NonReactive) 08/07/17 15:05 Hepatitis C Antibody Non-reactive (NonReactive) 08/07/17 15:05
[2017-08-11] MEDS: HEPARIN IV PRN (20:25)
[2017-08-11] MEDS: LOPRESSOR PO SCH (22:58)
[2017-08-11] MEDS: PEPCID PO SCH (22:58)
[2017-08-11] MEDS: HEPARIN SUB-Q SCH (23:00)
[2017-08-11] MEDS: AMBIEN PO PRN (23:03)
[2017-08-12 05:21] LABS: Hematocrit 30.3 % (35.5-45.6); Mean Corpuscular HGB Conc 33 % (32-34); Mean Corpuscular Hemoglobin 29 pg (28-32); Mean Corpuscular Volume 88 fl (84-94); Platelet Count 214 K/mm3 (140-440); Red Blood Count 3.46 M/mm3 (3.65-5.03); Red Cell Distribution Width 13.9 % (13.2-15.2); White Blood Count 10.6 K/mm3 (4.5-11.0)
--- NOTE | 2017-08-12 06:53 | Progress Note ---
Assessment and Plan 1. ESRD: CKD had progressed to ESRD and patient was started on hemodialysis during this admission. Last dialyzed yesterday. Await outpatient HD chair. 2. Hyperkalemia: Improved. 3. Metabolic acidosis: Improved. 4. Anemia: Epogen as needed. 5. Hypertension: BP well controlled. 6. DM type 2. 7. H/o CVA with right hemiplegia. Subjective Date of service: 08/12/17 Principal diagnosis: ESRD Interval history: Patient is doing ok. Objective - Vital Signs Vital signs: Vital Signs - 12hr 08/11/17 08/11/17 21:49 22:58 Temperature 98.5 F Pulse Rate 101 H Respiratory 14 Rate Blood Pressure 131/64 136/66 O2 Sat by Pulse 96 Oximetry - General Appearance General appearance: well-developed, well-nourished, appears stated age, other ( right IJ tunnel catheter) EENT: ATNC, PERRL, mucous membranes moist, hearing intact Neck: supple Respiratory: Present: Clear to Ascultation Cardiology: regular, S1S2, no murmurs Gastrointestinal: normoactive bowel sounds, no tenderness, no distended Integumentary: no rash, warm and dry Neurologic: no asterixis, alert and oriented x3, hemiplegic (right), other ( right eye blind) Musculoskeletal: other (no edema) Psychiatric: mood/affect appropriate, cooperative - Lab 08/12/17 04:41 08/09/17 04:54 Most recent lab results Calcium 8.8 mg/dL (8.4-10.2) 08/09/17 04:54 Phosphorus 5.00 mg/dL (2.5-4.5) H 08/07/17 15:05
[2017-08-12] MEDS: NOVOLOG SUB-Q SCH ×4 (07:30→22:28)
[2017-08-12] MEDS: PEPCID PO SCH ×4 (09:18→22:30)
[2017-08-12] MEDS: LOPRESSOR PO SCH ×4 (09:19→22:28)
[2017-08-12] MEDS: AMARYL PO SCH (09:19)
[2017-08-12] MEDS: FLOMAX PO SCH ×3 (09:19→22:31)
[2017-08-12] MEDS: NORVASC PO SCH (09:19)
[2017-08-12] MEDS: ZESTRIL PO SCH (09:21)
[2017-08-12] MEDS: HEPARIN SUB-Q SCH ×4 (09:22→22:29)
--- NOTE | 2017-08-12 14:44 | Progress Note ---
Assessment and Plan Pt s/p RIJ PC. I explained the risk of catheter based infection, and the importance of conversion to an AVF/AVG. He will need custodial access once he recovers from his recent CVA. His anatomy appears to be conducive for RUE AVF creation. The R,B,and A were explained to the pt. He states understanding and agrees. I wrote an order to avoid venipuncture in the RUE. He will f/u with our office as an outpt. - Patient Problems (1) ESRD needing dialysis Current Visit: Yes Status: Acute Subjective Date of service: 08/12/17 Principal diagnosis: ESRD Interval history: Pt awake without complaint at present. Objective - Constitutional Vitals: Vital Signs - 12hr 08/12/17 07:28 Temperature 98.3 F Pulse Rate 86 Respiratory 20 Rate Blood Pressure 129/66 O2 Sat by Pulse 96 Oximetry General appearance: Present: no acute distress - EENT Eyes: EOM intact ENT: hearing intact - Neck Neck: supple, other (RIJ PC in place, mild bruising without erythema or drainage appreciated.) - Respiratory Respiratory effort: normal Extremities: no ischemia - Neurologic Neurologic: no focal deficits - Psychiatric Psychiatric: appropriate mood/affect, intact judgment & insight, cooperative - Labs CBC & Chem 7: 08/12/17 04:41 08/09/17 04:54 Labs: Abnormal lab results 08/11/17 08/12/17 08/12/17 Range/Units 21:57 04:41 05:31 RBC 3.46 L (3.65-5.03) M/mm3 Hgb 10.0 L (11.8-15.2) gm/dl Hct 30.3 L (35.5-45.6) % POC Glucose 62 L 58 L (70-105) 08/12/17 08/12/17 Range/Units 06:17 13:43 RBC (3.65-5.03) M/mm3 Hgb (11.8-15.2) gm/dl Hct (35.5-45.6) % POC Glucose 123 H 112 H (70-105)
--- NOTE | 2017-08-12 22:30 | Progress Note ---
Assessment and Plan Assessment and plan: 57 yo male with HTN, DM, HPL, CKD and recent stroke with right-sided hemiparesis , sent from rehabilitation facility due to hyperkalemia 1. CKD that progressed ESRD that required HD indication Status post permacath placement; also vein mapping obtained for permanent dialysis access creation; vascular surgery plans AVG in 6 weeks HD per nephrology 2. Hyperkalemia Medically treated initially, then started on HD Now corrected 3. Anemia of CKD Epogen with HD per nephrology 4. Hypertension Started on amlodipine and BP controlled 5. Diabetes Hemoglobin A1c 6.1 Started on oral hypoglycemics 6. CVA with residual right-sided hemiparesis Start aspirin and statin PT 7. 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 Absent: enlarged thyroid, masses or JVD - Respiratory Respiratory effort: normal Respiratory: bilateral: CTA, negative: rhonchi, wheezing - Cardiovascular Rhythm: regular Heart Sounds: Present: S1 & S2. Absent: systolic murmur - Extremities Extremities: no ischemia - Abdominal General gastrointestinal: soft, non-tender, non-distended, normal bowel sounds - Psychiatric Psychiatric: cooperative - Neurologic Neurologic: other (right-sided hemiparesis) Results - Labs CBC & Chem 7: 08/12/17 04:41 08/09/17 04:54 Labs: Laboratory Last Values WBC 10.6 K/mm3 (4.5-11.0) 08/12/17 04:41 RBC 3.46 M/mm3 (3.65-5.03) L 08/12/17 04:41 Hgb 10.0 gm/dl (11.8-15.2) L 08/12/17 04:41 Hct 30.3 % (35.5-45.6) L 08/12/17 04:41 MCV 88 fl (84-94) 08/12/17 04:41 MCH 29 pg (28-32) 08/12/17 04:41 MCHC 33 % (32-34) 08/12/17 04:41 RDW 13.9 % (13.2-15.2) 08/12/17 04:41 Plt Count 214 K/mm3 (140-440) 08/12/17 04:41 Lymph % (Auto) 10.1 % (13.4-35.0) L 08/08/17 04:57 [place] % (Auto) 8.4 % (0.0-7.3) H 08/08/17 04:57 Eos % (Auto) 2.1 % (0.0-4.3) 08/08/17 04:57 Baso % (Auto) 0.4 % (0.0-1.8) 08/08/17 04:57 Lymph # 1.2 K/mm3 (1.2-5.4) 08/08/17 04:57 [place] # 1.0 K/mm3 (0.0-0.8) H 08/08/17 04:57 Eos # 0.2 K/mm3 (0.0-0.4) 08/08/17 04:57 Baso # 0.0 K/mm3 (0.0-0.1) 08/08/17 04:57 Seg Neutrophils % 79.0 % (40.0-70.0) H 08/08/17 04:57 Seg Neutrophils # 9.0 K/mm3 (1.8-7.7) H 08/08/17 04:57 Sodium 140 mmol/L (137-145) 08/09/17 04:54 Potassium 4.3 mmol/L (3.6-5.0) 08/09/17 04:54 Chloride 97.1 mmol/L (98-107) L 08/09/17 04:54 Carbon Dioxide 25 mmol/L (22-30) 08/09/17 04:54 Anion Gap 22 mmol/L 08/09/17 04:54 BUN 44 mg/dL (9-20) H 08/09/17 04:54 Creatinine 3.7 mg/dL (0.8-1.5) H 08/09/17 04:54 Estimated GFR 17 ml/min 08/09/17 04:54 BUN/Creatinine Ratio 12 % 08/09/17 04:54 Glucose 119 mg/dL (75-100) H 08/09/17 04:54 POC Glucose 92 (70-105) 08/12/17 21:55 Hemoglobin A1c 6.1 % (4-6) H 08/07/17 Unknown Calcium 8.8 mg/dL (8.4-10.2) 08/09/17 04:54 Phosphorus 5.00 mg/dL (2.5-4.5) H 08/07/17 15:05 Total Bilirubin 0.30 mg/dL (0.1-1.2) 08/08/17 04:57 AST 17 units/L (5-40) 08/08/17 04:57 ALT 14 units/L (7-56) 08/08/17 04:57 Alkaline Phosphatase 76 units/L (35-129) 08/08/17 04:57 Total Protein 6.9 g/dL (6.3-8.2) 08/08/17 04:57 Albumin 3.2 g/dL (3.9-5) L 08/08/17 04:57 Albumin/Globulin Ratio 0.9 % 08/08/17 04:57 Hepatitis A IgM Ab Non-reactive (NonReactive) 08/07/17 15:05 Hep Bs Antigen Non-reactive (Negative) 08/07/17 15:05 Hep B Core IgM Ab Non-reactive (NonReactive) 08/07/17 15:05 Hepatitis C Antibody Non-reactive (NonReactive) 08/07/17 15:05
[2017-08-12] MEDS: AMBIEN PO PRN (22:34)
--- NOTE | 2017-08-13 07:16 | Progress Note ---
Assessment and Plan 1. ESRD: CKD had progressed to ESRD and patient was started on hemodialysis during this admission. Last dialyzed 2 days ago. Patient has outpatient HD chair at [facility] starting tomorrow. Patient may go back to rehab today. 2. Hyperkalemia: Improved. 3. Metabolic acidosis: Improved. 4. Anemia: Epogen as needed. 5. Hypertension: BP well controlled. 6. DM type 2. 7. H/o CVA with right hemiplegia. Subjective Date of service: 08/13/17 Principal diagnosis: ESRD Interval history: Patient is doing ok. Objective - Vital Signs Vital signs: Vital Signs - 12hr 08/12/17 08/12/17 21:48 22:25 Temperature 99.3 F Pulse Rate 102 H 102 H Respiratory 14 Rate Blood Pressure 124/64 124/64 O2 Sat by Pulse 95 Oximetry - General Appearance General appearance: well-developed, well-nourished, appears stated age, other ( no distress, right IJ tunnel catheter) EENT: ATNC, PERRL, mucous membranes moist, hearing intact Neck: no JVD, supple Respiratory: Present: Clear to Ascultation Cardiology: regular, S1S2, no murmurs Gastrointestinal: normoactive bowel sounds, no tenderness, no distended Integumentary: no rash, warm and dry Neurologic: no asterixis, alert and oriented x3, hemiplegic (right), other ( right eye blindness) Musculoskeletal: other (no edema) Psychiatric: mood/affect appropriate, cooperative - Lab 08/12/17 04:41 08/09/17 04:54 Most recent lab results Calcium 8.8 mg/dL (8.4-10.2) 08/09/17 04:54 Phosphorus 5.00 mg/dL (2.5-4.5) H 08/07/17 15:05
[2017-08-13] MEDS: NOVOLOG SUB-Q SCH ×4 (07:30→23:22)
[2017-08-13] MEDS: AMARYL PO SCH (08:51)
[2017-08-13] MEDS: HEPARIN SUB-Q SCH ×2 (10:00→23:23)
[2017-08-13] MEDS: PEPCID PO SCH ×2 (10:04→23:19)
[2017-08-13] MEDS: FLOMAX PO SCH (10:04)
[2017-08-13] MEDS: ZESTRIL PO SCH (10:05)
[2017-08-13] MEDS: LOPRESSOR PO SCH ×2 (10:05→23:20)
[2017-08-13] MEDS: NORVASC PO SCH (10:50)
--- NOTE | 2017-08-13 17:16 | Discharge Summary ---
Providers - Providers Date of Admission: 08/07/17 13:37 Date of discharge: 08/13/17 Attending physician: LAURENT BUCK 08/07/17 12:48 Consult to Physician [CONS] Routine Consulting Provider: BEATRICE BURNETT Reason For Exam: ESRD NEEDING DIALYSIS. Place consult to:: DR. Baldomero BURNETT Notified:: DR. BURNETT Phone number called:: [phone] Was contact made?: Yes If yes, spoke with:: DR. BURNETT Time called:: 12:48 Comment:: DR. BURNETT AWARE OF CONSULT. 08/07/17 14:50 Consult to Interventional Radiology [CONS] Routine Consulting Provider: XAVI VASQUEZ Reason For Exam: Placement of Tunnel hemodialysis catheter Place consult to:: DR. PATEL Notified:: A.SLluvia Phone number called:: [phone] Was contact made?: Yes If yes, spoke with:: DR. PATEL Time called:: 18:48 08/08/17 06:45 Consult to Wound/ET Nurse [CONS] Routine Reason For Exam: wound eval 08/08/17 06:52 Physical Therapy Evaluation and Treat [CONS] Routine Comment: Reason For Exam: cva Primary care physician: RECYCLING OR RUBBISH COLLECTOR Hospitalization Reason for admission: hyperkalemia Condition: Stable Pertinent studies: Chest x-ray Vascular ultrasound Procedures: Permacath placement Hospital course: Patient is a 57 years old male with past medical history significant for hypertension, type today be this, hyperlipidemia, chronic kidney disease and a recent stroke with residual right-sided hemiparesis, who was found to have hyperkalemia at rehabilitation facility and was admitted for need to initiate hemodialysis. He underwent permacath placement and HD was initiated. Also vein mapping was performed and he will follow with vascular surgery in 6 weeks for permanent dialysis access creation. Was started on antiplatelet therapy and statin and antihypertensives/diabetic regimens have been adjusted. Discharged back to rehabilitation facility after outpatient hemodialysis was set up. Discharge diagnoses: CKD that progressed to ESRD and HD was initiated Anemia of chronic kidney disease Hypertension Diabetes Recent stroke with right-sided dandy-paresis Disposition: DC/TX-62 INPT REHAB FACILITY Time spent for discharge: 40 min Core Measure Documentation - Palliative Care Palliative Care/ Comfort Measures: Not Applicable - Core Measures Any of the following diagnoses?: stroke, history only - Stroke Discharge Requirements Statin for LDL = or >70 mg/dl on DC: Yes Anticoag for atrial fib/atrial flutter: Not Applicable Antithrombotic for ischemic stroke: Yes Exam - Physical Exam Narrative exam: Seen and examined: - Constitutional Vitals: Temp Pulse Resp BP Pulse Ox 98.1 F 85 19 125/83 95 08/13/17 08:11 08/13/17 10:50 08/13/17 08:11 08/13/17 10:05 08/13/17 08:11 General appearance: Present: no acute distress, well-nourished - EENT Eyes: Present: PERRL, EOM intact. Absent: scleral icterus, conjunctival injection - Neck Neck: Present: supple, normal ROM. Absent: masses or JVD - Respiratory Respiratory effort: normal Respiratory: bilateral: CTA, negative: rhonchi, wheezing - Cardiovascular Rhythm: regular Heart Sounds: Present: S1 & S2. Absent: systolic murmur - Extremities Extremities: no ischemia - Abdominal General gastrointestinal: Present: soft, non-tender, non-distended, normal bowel sounds - Musculoskeletal Musculoskeletal: right sided weakness - Psychiatric Psychiatric: cooperative Plan Activity: advance as tolerated, fall precautions Diet: low cholesterol, low salt, diabetic, renal Follow up with: PRIMARY CARE, [Primary Care Provider] - 7 Days BEATRICE BURNETT MD [Staff Physician] - 7 Days XAVI VASQUEZ MD [Staff Physician] - 6 Weeks (AVG) Prescriptions: AtorvaSTATin [Lipitor] 40 mg PO QHS #30 tablet amLODIPine [Norvasc] 10 mg PO QDAY #30 tablet Aspirin [Aspirin BABY CHEW TAB] 81 mg PO QDAY #30 tab.chew Glimepiride [Amaryl] 1 mg PO QDDIAB #30 tablet Lisinopril [Zestril TAB] 10 mg PO DAILY #30 tablet Metoprolol [Lopressor TAB] 50 mg PO BID #60 tablet Tamsulosin [Flomax] 0.4 mg PO QDAY #30 capsule
[2017-08-13] MEDS: BABY ASPIRIN PO SCH (18:26)
[2017-08-13] MEDS: AMBIEN PO PRN (23:19)
[2017-08-14] MEDS: NOVOLOG SUB-Q SCH ×2 (09:14→15:28)
[2017-08-14] MEDS: AMARYL PO SCH (09:16)
[2017-08-14] MEDS ORDERED: NACL 0.9% 100 ML IV PRN (09:37)
--- NOTE | 2017-08-14 09:38 | Progress Note ---
Assessment and Plan 1. ESRD: CKD had progressed to ESRD and patient was started on hemodialysis during this admission. Last dialyzed 3 days ago. HD today in the hospital. Patient has outpatient HD chair at [facility], [facility] schedule. 2. Hyperkalemia: Improved. 3. Metabolic acidosis: Improved. 4. Anemia: Epogen as needed. 5. Hypertension: BP well controlled. 6. DM type 2. 7. H/o CVA with right hemiplegia. Subjective Date of service: 08/14/17 Principal diagnosis: ESRD Interval history: Patient is doing ok. Objective - Vital Signs Vital signs: Vital Signs - 12hr 08/13/17 08/14/17 08/14/17 23:20 08:10 08:11 Temperature 98.1 F Pulse Rate 86 85 80 Respiratory 18 Rate Blood Pressure 138/75 149/70 Blood Pressure [Left] O2 Sat by Pulse 96 95 Oximetry 08/14/17 08:15 Temperature 98.9 F Pulse Rate 82 Respiratory 16 Rate Blood Pressure Blood Pressure 149/70 [Left] O2 Sat by Pulse Oximetry - General Appearance General appearance: well-developed, well-nourished, appears stated age, other ( no distress, right IJ tunnel catheter) EENT: ATNC, PERRL, mucous membranes moist, hearing intact Neck: supple Respiratory: Present: Clear to Ascultation Cardiology: regular, S1S2, no murmurs Gastrointestinal: normoactive bowel sounds, no tenderness, no distended Integumentary: no rash, warm and dry Neurologic: no asterixis, alert and oriented x3, hemiplegic (right), other ( right eye blind) Musculoskeletal: other (no edema) Psychiatric: mood/affect appropriate, cooperative - Lab 08/12/17 04:41 08/09/17 04:54 Most recent lab results Calcium 8.8 mg/dL (8.4-10.2) 08/09/17 04:54 Phosphorus 5.00 mg/dL (2.5-4.5) H 08/07/17 15:05
[2017-08-14] MEDS: HEPARIN SUB-Q SCH (10:00)
[2017-08-14] MEDS: LOPRESSOR PO SCH (10:00)
[2017-08-14] MEDS ORDERED: NACL 0.9 (PRIMING MACHINE ONLY DIALYSIS) MC ONE (13:20)
[2017-08-14 15:22] VITALS: BP 128/61
[2017-08-14] MEDS: NORVASC PO SCH (15:26)
[2017-08-14] MEDS: ZESTRIL PO SCH (15:27)
[2017-08-14] MEDS: PEPCID PO SCH (15:27)
[2017-08-14] MEDS: BABY ASPIRIN PO SCH (15:27)
[2017-08-14] MEDS: FLOMAX PO SCH (15:33)
[2017-08-14] MEDS: HEPARIN IV PRN (16:12)
--- NOTE | 2017-08-14 18:47 | Discharge Summary ---
Providers - Providers Date of Admission: 08/07/17 13:37 Date of discharge: 08/14/17 Attending physician: LAURENT BUCK 08/07/17 12:48 Consult to Physician [CONS] Routine Consulting Provider: BEATRICE BURNETT Reason For Exam: ESRD NEEDING DIALYSIS. Place consult to:: DR. Baldomero BURNETT Notified:: DR. BURNETT Phone number called:: [phone] Was contact made?: Yes If yes, spoke with:: DR. BURNETT Time called:: 12:48 Comment:: DR. BURNETT AWARE OF CONSULT. 08/07/17 14:50 Consult to Interventional Radiology [CONS] Routine Consulting Provider: XVAI VASQUEZ Reason For Exam: Placement of Tunnel hemodialysis catheter Place consult to:: DR. PATEL Notified:: A.SLluvia Phone number called:: [phone] Was contact made?: Yes If yes, spoke with:: DR. PATEL Time called:: 18:48 08/08/17 06:45 Consult to Wound/ET Nurse [CONS] Routine Reason For Exam: wound eval 08/08/17 06:52 Physical Therapy Evaluation and Treat [CONS] Routine Comment: Reason For Exam: cva Primary care physician: CARE MANAGEMENT ASSISTANT Hospitalization Reason for admission: hyperkalemia Condition: Stable Pertinent studies: Chest x-ray Vascular ultrasound Procedures: Permacath placement Hospital course: Patient is a 57 years old male with past medical history significant for hypertension, type today be this, hyperlipidemia, chronic kidney disease and a recent stroke with residual right-sided hemiparesis, who was found to have hyperkalemia at rehabilitation facility and was admitted for need to initiate hemodialysis. He underwent permacath placement and HD was initiated. Also vein mapping was performed and he will follow with vascular surgery in 6 weeks for permanent dialysis access creation. Was started on antiplatelet therapy and statin and antihypertensives/diabetic regimens have been adjusted. Discharged back to rehabilitation facility after outpatient hemodialysis was set up. Discharge diagnoses: CKD that progressed to ESRD and HD was initiated Anemia of chronic kidney disease Hypertension Diabetes Recent stroke with right-sided dandy-paresis Disposition: DC/TX-62 INPT REHAB FACILITY Time spent for discharge: 35 min Core Measure Documentation - Palliative Care Palliative Care/ Comfort Measures: Not Applicable - Core Measures Any of the following diagnoses?: stroke, history only - Stroke Discharge Requirements Statin for LDL = or >70 mg/dl on DC: Yes Anticoag for atrial fib/atrial flutter: Not Applicable Antithrombotic for ischemic stroke: Yes Exam - Physical Exam Narrative exam: Seen and examined: General appearance: Present: no acute distress, well-nourished - EENT Eyes: Present: PERRL, EOM intact. Absent: scleral icterus, conjunctival injection - Neck Neck: Present: supple, normal ROM. Absent: masses or JVD - Respiratory Respiratory effort: normal Respiratory: bilateral: CTA, negative: rhonchi, wheezing - Cardiovascular Rhythm: regular Heart Sounds: Present: S1 & S2. Absent: systolic murmur - Extremities Extremities: no ischemia - Abdominal General gastrointestinal: Present: soft, non-tender, non-distended, normal bowel sounds - Musculoskeletal Musculoskeletal: right sided weakness - Psychiatric Psychiatric: cooperative - Constitutional Vitals: Temp Pulse Resp BP Pulse Ox 99.5 F 83 18 128/61 93 08/14/17 15:18 08/14/17 15:27 08/14/17 15:18 08/14/17 15:27 08/14/17 15:18 Plan Activity: advance as tolerated, fall precautions Diet: low cholesterol, low salt, diabetic, renal Follow up with: XAVI VASQUEZ MD [Staff Physician] - 6 Weeks (AVG) PRIMARY MD MARIE [Primary Care Provider] - 7 Days BEATRICE BURNETT MD [Staff Physician] - 7 Days Prescriptions: AtorvaSTATin [Lipitor] 40 mg PO QHS #30 tablet amLODIPine [Norvasc] 10 mg PO QDAY #30 tablet Aspirin [Aspirin BABY CHEW TAB] 81 mg PO QDAY #30 tab.chew Glimepiride [Amaryl] 1 mg PO QDDIAB #30 tablet Lisinopril [Zestril TAB] 10 mg PO DAILY #30 tablet Metoprolol [Lopressor TAB] 50 mg PO BID #60 tablet Tamsulosin [Flomax] 0.4 mg PO QDAY #30 capsule
== END 2017-08-14 19:10 | disposition home or self-care (01) | DRG 673 ==
LOC: UNDOADMIN 12:38 → 3A 12:38
PROVIDERS: ADMIT Internal Medicine; ATTEND Internal Medicine
PROC: 02H633Z Insertion of Infusion Device into Right Atrium, Percutaneous Approach (ICD-10-PCS; principal; 2017-08-08)
PROC: B244ZZZ Ultrasonography of Right Heart (ICD-10-PCS; 2017-08-08)
PROC: 0JH63XZ Insertion of Tunneled Vascular Access Device into Chest Subcutaneous Tissue and Fascia, Percutaneous Approach (ICD-10-PCS; 2017-08-08)
PROC: 5A1D70Z Performance of Urinary Filtration, Intermittent, Less than 6 Hours Per Day (ICD-10-PCS; 2017-08-08)
PROC: 5A1D70Z Performance of Urinary Filtration, Intermittent, Less than 6 Hours Per Day (ICD-10-PCS; 2017-08-09)
PROC: 5A1D70Z Performance of Urinary Filtration, Intermittent, Less than 6 Hours Per Day (ICD-10-PCS; 2017-08-11)
PROC: 5A1D70Z Performance of Urinary Filtration, Intermittent, Less than 6 Hours Per Day (ICD-10-PCS; 2017-08-14)
DX: I12.0 Hypertensive chronic kidney disease with stage 5 chronic kidney disease or end stage renal disease (principal); N18.6 End stage renal disease; E87.2 Acidosis; I69.351 Hemiplegia and hemiparesis following cerebral infarction affecting right dominant side; E87.5 Hyperkalemia; R33.9 Retention of urine, unspecified; D63.1 Anemia in chronic kidney disease; E11.22 Type 2 diabetes mellitus with diabetic chronic kidney disease; Z99.2 Dependence on renal dialysis; Z82.49 Family history of ischemic heart disease and other diseases of the circulatory system; Z79.84 Long term (current) use of oral hypoglycemic drugs
CPT/HCPCS: 36415; 36558; 71010; 76937; 77001; 80048; 80053; 80074; 82962; 83036; 84100; 85025; 85027; A9270-GY; C1750; J1644; J1815; J2250; J3010; J7030; J7050

== ENCOUNTER 2017-10-21 06:13 | Day surgery (SDC) | payer OTHER ==
[~2017-10-21 06:13] MED LIST: ANCEF/STERILE WATER 2 GM/20 ML 2 GM/20 ML SYRINGE IV NR; HEPARIN 10,000 UNITS/10 ML IV ONE; MARCAINE 0.5% INFILTRATI ONE; NACL 0.9% 1000 ML 1,000 ML IV SCH; NACL 0.9% 500 ML IV ONE; NACL 0.9% IR ONE
[2017-10-21] MEDS ORDERED: NACL BACTERIOSTATIC INFILTRATI ONE (06:38)
[2017-10-21 07:12] LABS: Basophils # (Auto) 0.1 K/mm3 (0.0-0.1); Basophils % (Auto) 0.8 % (0.0-1.8); Eosinophils # (Auto) 0.4 K/mm3 (0.0-0.4); Eosinophils % (Auto) 4.8 % (0.0-4.3); Hematocrit 33.6 % (35.5-45.6); Hemoglobin 11.4 gm/dl (11.8-15.2); Lymphocytes # (Auto) 1.2 K/mm3 (1.2-5.4); Lymphocytes % (Auto) 15.8 % (13.4-35.0); Mean Corpuscular HGB Conc 34 % (32-34); Mean Corpuscular Hemoglobin 30 pg (28-32); Mean Corpuscular Volume 89 fl (84-94); Monocytes # (Auto) 0.6 K/mm3 (0.0-0.8); Monocytes % (Auto) 8.5 % (0.0-7.3); Platelet Count 192 K/mm3 (140-440); Red Blood Count 3.77 M/mm3 (3.65-5.03); Red Cell Distribution Width 16.3 % (13.2-15.2)
[2017-10-21] MEDS ORDERED: HEPARIN 10,000 UNITS/10 ML ONE ×2 (07:18→15:17)
[2017-10-21] MEDS ORDERED: NACL 0.9% 500 ML 500 ML ONE (07:19)
[2017-10-21] MEDS ORDERED: MARCAINE 0.5% INFILTRATI ONE ×2 (07:19→10:28)
[2017-10-21] MEDS ORDERED: XYLOCAINE 1%/ EPI 1:100,000 INFILTRATI ONE (07:20)
[2017-10-21] MEDS ORDERED: SODIUM BICARBONATE ONE (07:20)
[2017-10-21 07:22] LABS: Calcium 9.4 mg/dL (8.4-10.2)
[2017-10-21] MEDS ORDERED: SUBLIMAZE IV PRN (07:29)
--- NOTE | 2017-10-21 07:29 | Anesthesia Consultation ---
Anesthesia Consult and Med Hx Date of service: 10/21/17 - Airway Anesthetic Teeth Evaluation: Poor (missing,loose) ROM Head & Neck: Adequate Mental/Hyoid Distance: Adequate Mallampati Class: Class III Intubation Access Assessment: Probably Good - Pulmonary Exam CTA: Yes - Cardiac Exam Cardiac Exam: RRR - Pre-Operative Health Status ASA Pre-Surgery Classification: ASA4 Proposed Anesthetic Plan: General - Pulmonary Hx Smoking: Yes (Quit 1993) COPD: Yes Hx Sleep Apnea: Yes (on CPAP) - Cardiovascular System Hx Hypertension: Yes - Central Nervous System CVA: Yes (right sided weakness) - Endocrine Hx End Stage Renal Disease: Yes (on HD T/T/S. last HD on sat) Hx Non-Insulin Dependent Diabetes: Yes - Hematic Hx Anemia: Yes - Other Systems Hx Cancer: No - Additional Comments Anesthesia Medical History Comments: Informed consent obtained
--- NOTE | 2017-10-21 07:29 | Anesthesia Day of Surgery ---
Anesthesia Day of Surgery - Day of Surgery Patient Examined: Yes Patient H&P Reviewed: Yes Patient is NPO: Yes Beta Blockers: Yes (last night at 9:45 pm)
[2017-10-21] MEDS ORDERED: VERSED ONE (08:00)
[2017-10-21] MEDS ORDERED: SUBLIMAZE ONE (08:00)
[2017-10-21] MEDS ORDERED: DIPRIVAN 10 MG/ML IV ONE (08:01)
[2017-10-21] MEDS ORDERED: ePHEDrine SULFATE ONE (08:42)
[2017-10-21] MEDS ORDERED: Vasostrict ONE (09:02)
[2017-10-21] MEDS ORDERED: HEPARIN 10,000 UNITS/10 ML IV ONE (09:41)
[2017-10-21] MEDS ORDERED: NACL 0.9% 500 ML IV ONE (09:41)
[2017-10-21] MEDS ORDERED: NACL 0.9% IR ONE (10:25)
--- NOTE | 2017-10-21 10:44 | Operative Report ---
Operative Report Operative Report: Operative note: Date: 10/21/2017 Preoperative diagnosis: Endstage renal disease on hemodialysis Postoperative diagnosis: Same. Operation: creation of right Madeleine AV fistula Surgeon: Patricia Booker. Asst.: None Anesthesia: Gen. EBL: Minimal Findings: Radial artery without evidence of plaque Indications: 57-year-old male with end-stage renal disease on hemodialysis via PermCath was scheduled for permanent access creation. Although patient was right hand dominant, his right UE is peretic after stroke. AVF creation was chose on the right. Patient was explained all risks, benefits and alternatives of procedure and chose to proceed, signed informed consent. Operative details: The ultrasound was performed identifying cephalic vein. It was compressible is good size throughout its length from the wrist level. Incision was made between the distal part of cephalic vein and radial artery. Initially we dissected around cephalic vein mobilizing, then dissected the radial artery. Cephalic vein was transected distally and was likely this sterile silk. It was irrigated with heparinized saline with olive-tipped syringe. Patient was heparinized. Distal and proximal control for radial artery was gained with vessel loops. Arteriotomy was created with 11 blade and extended with Jett scissors. Anastomosis was created waith running 6-0 Prolene. When the artery was unclamped, was identified arterial pulse and thrill in the cephalic vein. Hemostasis was achieved with electrocautery and wound was closed in 2 layers with 3-0 Vicryl and 4-0 Monocryl. There was separate incision made for venous tributary ligation. It was ligated with 2-0 silk and closed in 2 layers. Dermabond glue applied. Needle and sponge counts were correct 2. Patient tolerated procedure well and was transferred to PACU in stable condition.
--- NOTE | 2017-10-21 10:48 | Short Stay Summary ---
Short Stay Documentation Date of service: 10/21/17 Narrative H&P: patient was hospitalized recently, progressed to ESRD. He had permcathinsertion and was started on HD. He was scheduled for permanent access creation as outpatient. Today he came for right AVF creation. - History Past Medical History: diabetes, hypertension (bilateral rotator c Sx), renal failure Social history: no significant social history - Allergies and Medications Current Medications: Allergies PAPER TAPE Allergy (Uncoded 10/21/17 06:42) Rash Home Medications Medication Instructions Recorded Confirmed Last Taken Type Aspirin [Aspirin BABY CHEW TAB] 81 mg PO QDAY #30 tab.chew 09/19/17 10/21/1708/25 21:45 Rx AtorvaSTATin [Lipitor] 40 mg PO QHS #30 tablet 09/19/17 10/21/17 10/20/17 21:45 Rx Clopidogrel [Plavix] 75 mg PO QDAY #30 tablet 09/19/17 10/21/17 10/20/17 21:45 Rx Pantoprazole [Protonix TAB] 40 mg PO QDAY #30 tablet 09/19/17 10/21/17 10/20/17 21:45 Rx Metoprolol [Lopressor TAB] 50 mg PO BID 10/21/17 10/21/17 10/20/17 21:45 History amLODIPine [Norvasc] 10 mg PO DAILY 10/21/17 10/21/17 10/20/17 21:45 History Active Medications Fentanyl (Sublimaze) 50 mcg IV Q5MIN PRN PRN Reason: Pain , Severe (7-10) Stop: 10/21/17 13:00 Cefazolin Sodium (Ancef/Sterile Water 2 Gm/20 Ml) 2 gm in 20 mls @ 80 mls/hr IV PREOP NR PRN Reason: Protocol Stop: 10/21/17 23:00 Sodium Chloride (Nacl 0.9% 1000 Ml) 1,000 mls @ 42 mls/hr IV DIRECT OMAR Last Admin: 10/21/17 07:06 Dose: 42 mls/hr - Physical exam General appearance: no acute distress - Brief post op/procedure progress note Date of procedure: 10/21/17 Pre-op diagnosis: ESRD on HD Post-op diagnosis: same Procedure: right AVF creation Anesthesia: GETA Surgeon: TERRY LEE Estimated blood loss: minimal Condition: stable - Disposition Condition at discharge: Good Disposition: DC/TX-62 IN REHAB FACILITY Short Stay Discharge Plan Diet: renal Wound: open to air Special Instructions: no heavy lifting Follow up with: HOLLEY MATA MD [Primary Care Provider] - 7 Days TERRY LEE DO [Staff Physician] - 14 Days Prescriptions: Acetaminophen/Codeine [Tylenol /Codeine # 3 tab] 1 tab PO Q4HR PRN #20 tablet PRN Reason: Pain
[2017-10-21] MEDS ORDERED: XYLOCAINE CARDIAC IV ONE (13:27)
[2017-10-21] MEDS ORDERED: NEO SYNEPHRINE/NS Syringe(OR USE) IV ONE (13:27)
[2017-10-21 13:34] VITALS: BP 130/72
--- NOTE | 2017-10-21 13:53 | Post Anesthesia Evaluation ---
- Post Anesthesia Evaluation Patient Participated: Yes Airway Patent: Yes Stable Respiratory Function: Yes Nausea/Vomiting: No Temp > 96.8F: Yes Pain Manageable: Yes Adequeate Hydration: Yes Anesthesia Complications: No Block Receding Appropriately: Not Applicable Patient on Ventilator: No
== END 2017-10-21 06:14 | disposition home or self-care (01) ==
LOC: OR 06:13
PROVIDERS: ATTEND Surgery Vascular Surgery
DX: E11.22 Type 2 diabetes mellitus with diabetic chronic kidney disease (principal); I12.0 Hypertensive chronic kidney disease with stage 5 chronic kidney disease or end stage renal disease; N18.6 End stage renal disease; I69.951 Hemiplegia and hemiparesis following unspecified cerebrovascular disease affecting right dominant side; J44.9 Chronic obstructive pulmonary disease, unspecified; G43.909 Migraine, unspecified, not intractable, without status migrainosus; Z99.89 Dependence on other enabling machines and devices
CPT/HCPCS: 36415; 36821; 80048; 82962; 85025; J0690; J1644; J2001; J2250; J2370; J2704; J3010; J7030; J7040